=== PATIENT | male | born 1960 | race Caucasian/White ===

== ENCOUNTER 2019-08-02 11:30 | Emergency (ER) | payer OTHER ==
[~2019-08-02] VITALS: Wt 124.5 kg
[~2019-08-02 11:30] MED LIST: IBUP-1542 PO
[2019-08-02 11:54] VITALS: BP 129/79; PULSE 68; RESP 20
[2019-08-02] MEDS ORDERED: KETOROLAC 30 MG INJ IM STA (13:19)
== END 2019-08-02 14:25 | disposition home or self-care (01) ==
LOC: FTE 11:30
DX: S63.91XA Sprain of unspecified part of right wrist and hand, initial encounter (principal); I10 Essential (primary) hypertension; E11.9 Type 2 diabetes mellitus without complications; W01.0XXA Fall on same level from slipping, tripping and stumbling without subsequent striking against object, initial encounter; Y92.9 Unspecified place or not applicable; Z87.891 Personal history of nicotine dependence
CPT/HCPCS: 73130; 96372; J1885; Z7502